=== PATIENT | male | born 1975 | race Caucasian/White ===

== ENCOUNTER → 2016-06-13 | Outpatient (CLI) | payer OTHER ==
[~2016-06-13] MED LIST: CETI10TA84 PO; FLM4 PO; IBUP-103 PO; MEPE1TAB PO
== END | disposition home or self-care (01) ==
LOC: C.PATHSPEC 17:47
PROVIDERS: ATTEND Dermatology
DX: D22.5 Melanocytic nevi of trunk (principal)

== ENCOUNTER → 2016-08-18 | Outpatient (CLI) | payer OTHER ==
[2016-08-18 13:19] LABS: MEAN CELL VOLUME 87.8 fL (80-100); MEAN CORPUSCULAR HEMOGLOBIN 30.7 pg (25-34); MEAN PLATELET VOLUME 9.4 fL (7.4-10.4); PLATELET COUNT 374 K/uL (130-400); RED BLOOD COUNT 5.47 M/uL (4.7-6.1); WHITE BLOOD COUNT 6.52 K/uL (4.8-10.8)
[2016-08-18 13:25] LABS: URINE APPEARANCE CLEAR (CLEAR); URINE BILIRUBIN NEG (NEG); URINE COLOR YELLOW; URINE EPITHELIAL CELL AUTO 0-5 /lpf (0-5); URINE NITRITE NEG (NEG); URINE SPECIFIC GRAVITY 1.018 (1.000-1.030); UROBILINOGEN NEG (NEG)
[2016-08-18 13:26] LABS: MANUAL MICROSCOPIC REQUIRED? NO; REVIEW REQ? NO
[2016-08-18 13:48] LABS: ALT/SGPT 49 U/L (12-78); BLOOD UREA NITROGEN 9 mg/dl (7-18); BUN/CREATININE RATIO 10.2 (10-20); CALCIUM 9.4 mg/dl (8.5-10.1); CARBON DIOXIDE 34 mmol/L (21-32); CHLORIDE 104 mmol/L (98-107); GLUCOSE 110 mg/dl (70-99); MAGNESIUM 2.3 mg/dl (1.8-2.4); POTASSIUM 3.9 mmol/L (3.5-5.1); SODIUM 140 mmol/L (136-145); URIC ACID 5.1 mg/dl (2.6-7.2)
[2016-08-18 13:49] LABS: URINE PROTIEN/CREAT RATIO 0.1 (0-0.2); URINE TOTAL PROTEIN 12.6 mg/dl (0-11.9)
[2016-08-18 13:51] LABS: ALB/GLOB RATIO 1.1 (0.9-2); ALKALINE PHOSPHATASE 63 U/L (45-117); AST/SGOT 22 U/L (15-37)
== END | disposition home or self-care (01) ==
LOC: C.LAB 12:19
PROVIDERS: ATTEND Internal Medicine Nephrology
DX: N20.0 Calculus of kidney (principal); N28.1 Cyst of kidney, acquired; E87.6 Hypokalemia

== ENCOUNTER → 2016-12-13 | Outpatient (CLI) | payer OTHER | END | disposition home or self-care (01) | LOC: C.PATHSPEC 16:38 | PROVIDERS: ATTEND Dermatology | DX: B07.9 Viral wart, unspecified (principal) ==

== ENCOUNTER → 2017-03-28 | Outpatient (CLI) | payer OTHER ==
[2017-03-28 13:07] LABS: HEMATOCRIT 49.1 % (42-52); HEMOGLOBIN 17.1 g/dL (14.0-18.0); MEAN CELL VOLUME 86.7 fL (80-100); MEAN CORPUSCULAR HEMOGLOBIN 30.2 pg (25-34); MEAN CORPUSCULAR HGB CONC 34.8 g/dl (32-36); MEAN PLATELET VOLUME 9.1 fL (7.4-10.4); PLATELET COUNT 365 K/uL (130-400); RED CELL DISTRIBUTION WIDTH CV 12.7 % (11.5-14.5); RED CELL DISTRIBUTION WIDTH SD 40.5 fL (36.4-46.3); WHITE BLOOD COUNT 8.83 K/uL (4.8-10.8)
--- NOTE | 2017-03-28 13:31 | DIAGNOSTIC IMAGING REPORT ---
[facility] CLINICAL HISTORY: 41 years-old Male presenting with N20.0 [id number]. TECHNIQUE: Single supine view of the abdomen was obtained. COMPARISON: 09/14/2015. FINDINGS: Nonobstructive bowel gas pattern. Moderate stool burden in the right and proximal transverse colon. No gross pneumoperitoneum. Allowing for bowel gas and stool, bilateral nephrolithiasis. Stable distribution of pelvic phleboliths. No commencing evidence of ureteral calculi. Osseous structures normal. IMPRESSION: 1. Bilateral nephrolithiasis. No ureteral calculi. Electronically signed by: Denys Rodriguez M.D. 03/28/2017 1:30 PM Dictated Date/Time: 03/28/2017 1:28 PM
[2017-03-28 13:37] LABS: BLOOD UREA NITROGEN 11 mg/dl (7-18); CALCIUM 9.4 mg/dl (8.5-10.1); CARBON DIOXIDE 31 mmol/L (21-32); CREATININE 0.84 mg/dl (0.60-1.40); GLUCOSE 106 mg/dl (70-99); PHOSPHORUS 2.8 mg/dl (2.5-4.9); POTASSIUM 3.5 mmol/L (3.5-5.1); SODIUM 138 mmol/L (136-145); URIC ACID 5.3 mg/dl (2.6-7.2)
== END | disposition home or self-care (01) ==
LOC: C.RAD 12:09
PROVIDERS: ATTEND Urology
DX: N20.0 Calculus of kidney (principal); N28.1 Cyst of kidney, acquired; E87.6 Hypokalemia